=== PATIENT | female | born 1980 | race Caucasian/White ===

== ENCOUNTER 2022-06-21 08:33 | Inpatient (IN) | payer OTHER ==
[2022-06-21] MEDS ORDERED: NICOTINE 10 MG CARTRIDGE (INHALER) IH PRN (09:15)
[2022-06-21] MEDS ORDERED: IBUPROFEN 400 MG TABLET (FP) PO PRN (09:15)
[2022-06-21] MEDS ORDERED: LOPERAMIDE HCL 2 MG CAPSULE PO PRN (09:15)
[2022-06-21] MEDS ORDERED: NICOTINE POLACRILEX 2 MG GUM BUC PRN (09:15)
[2022-06-21] MEDS ORDERED: ONDANSETRON *ODT* 4 MG TABLET SL PRN (09:15)
[2022-06-21] MEDS ORDERED: NALOXONE HCL (KLOXXADO) 8 MG SPRAY NS PRN (09:15)
[2022-06-21] MEDS ORDERED: clonazePAM 0.5 MG ODT TABLETS SL PRN (09:15)
[2022-06-21] MEDS ORDERED: POLYETHYLENE GLYCOL (HEALTHYLAX) 3350 17 GM PACKET PO PRN (09:15)
[2022-06-21] MEDS ORDERED: ACETAMINOPHEN 325 MG TABLET (FP) PO PRN ×2 (09:15)
[2022-06-21] MEDS ORDERED: IBUPROFEN 600 MG TABLET (FP) PO PRN (09:15)
[2022-06-21] MEDS ORDERED: MAG HYDROX/AL HYDROX/SIMETH 30 ML UNIT-DOSE CUP PO PRN (09:15)
[2022-06-21] MEDS ORDERED: DICYCLOMINE HCL 10 MG CAPSULE PO PRN (09:15)
[2022-06-21] MEDS ORDERED: BENZOCAINE/MENTHOL (CHLORASEPTIC ) LOZENGE MM PRN (09:15)
[2022-06-21] MEDS ORDERED: BISMUTH SUBSALICYLATE 524 MG/30 ML PO PRN (09:15)
[2022-06-21] MEDS ORDERED: cloNIDine HCL 0.1 MG TABLET PO PRN (09:15)
[2022-06-21] MEDS ORDERED: MAGNESIUM HYDROX 2400MG/30ML ORAL SUSPENSION 30 ML CUP PO PRN (09:15)
[2022-06-21] MEDS ORDERED: ONDANSETRON *ODT* 4 MG TABLET ONE (09:35)
[2022-06-21] MEDS ORDERED: methaDONE HCL 10 MG TABLET (FOR DETOX USE ONLY) PO ONE (10:00)
[2022-06-21] MEDS ORDERED: methaDONE HCL 10 MG TABLET (FOR DETOX USE ONLY) ONE (10:12)
[2022-06-21] MEDS ORDERED: PRENATAL VITAMINS W/ FOLIC ACID TABLET (FP) PO ONE (10:12)
[2022-06-21] MEDS: PRENATAL VITAMINS W/ FOLIC ACID TABLET (FP) PO SCH (10:25)
[2022-06-21] MEDS: CLOTRIMAZOLE 1% CREAM TP SCH ×2 (12:05→22:04)
[2022-06-21] MEDS ORDERED: MELATONIN 5 MG TABLETS PO SCH (22:00)
[2022-06-21] MEDS: THIAMINE HCL 100 MG TABLET (FP) PO SCH (22:04)
[2022-06-21] MEDS: hydrOXYzine PAMOATE 25 MG CAPSULE (FP) PO PRN (22:06)
[2022-06-22] MEDS: hydrOXYzine PAMOATE 25 MG CAPSULE (FP) PO PRN (06:19)
[2022-06-22] MEDS: PRENATAL VITAMINS W/ FOLIC ACID TABLET (FP) PO SCH (10:46)
[2022-06-22] MEDS: CLOTRIMAZOLE 1% CREAM TP SCH ×2 (10:47→22:27)
[2022-06-22] MEDS: SERTRALINE HCL 50 MG TABLET (FP) PO SCH (12:18)
[2022-06-22] MEDS: NICOTINE POLACRILEX 4 MG GUM BUC PRN ×2 (12:23→22:29)
[2022-06-22 13:39] LABS: HEMATOCRIT 38.7 % (32.4-45.2); HEMOGLOBIN 13.5 GM/dL (10.7-15.3); MCH 30.1 pg (25.7-33.7); MCHC 34.8 g/dl (32.0-36.0); MEAN CELL VOLUME 86.5 fl (80-96); MEAN PLT VOLUME 9.5 fl (7.5-11.1); PLATELET COUNT 204 10^3/uL (134-434); RBC 4.47 M/mm3 (3.60-5.2); RDW 14.9 % (11.6-15.6); WHITE BLOOD COUNT 3.3 K/mm3 (4.0-10.0)
[2022-06-22 14:27] LABS: CALCIUM 9.6 mg/dL (8.5-10.1)
[2022-06-22 14:28] LABS: BLOOD UREA NITROGEN 13.2 mg/dL (7-18)
[2022-06-22 14:31] LABS: CREATININE 0.8 mg/dL (0.55-1.3)
[2022-06-22 14:33] LABS: BILIRUBIN,TOTAL 0.3 mg/dL (0.2-1); TOT PROT 7.9 g/dl (6.4-8.2)
[2022-06-22] MEDS: risperiDONE 2 MG TABLET PO SCH (22:26)
[2022-06-22] MEDS: THIAMINE HCL 100 MG TABLET (FP) PO SCH (22:26)
[2022-06-22] MEDS: SUVOREXANT 10 MG TABLET PO PRN (22:28)
[2022-06-23] MEDS: METHOCARBAMOL 500 MG TABLET PO PRN ×2 (09:29→22:13)
[2022-06-23] MEDS: SERTRALINE HCL 50 MG TABLET (FP) PO SCH (09:29)
[2022-06-23] MEDS: hydrOXYzine PAMOATE 25 MG CAPSULE (FP) PO PRN (09:29)
[2022-06-23] MEDS: PRENATAL VITAMINS W/ FOLIC ACID TABLET (FP) PO SCH (09:30)
[2022-06-23] MEDS: NICOTINE 21 MG/24 HOURS TOPICAL PATCH TD PRN (09:31)
[2022-06-23] MEDS: NICOTINE POLACRILEX 4 MG GUM BUC PRN ×3 (09:31→21:14)
[2022-06-23] MEDS: CLOTRIMAZOLE 1% CREAM TP SCH ×2 (09:33→22:45)
[2022-06-23] MEDS ORDERED: methaDONE HCL 10 MG TABLET (FOR DETOX USE ONLY) PO ONE (10:00)
[2022-06-23] MEDS: THIAMINE HCL 100 MG TABLET (FP) PO SCH (22:13)
[2022-06-23] MEDS: risperiDONE 2 MG TABLET PO SCH (22:13)
[2022-06-23] MEDS: SUVOREXANT 10 MG TABLET PO PRN (22:13)
[2022-06-24] MEDS: SERTRALINE HCL 50 MG TABLET (FP) PO SCH (09:33)
[2022-06-24] MEDS: PRENATAL VITAMINS W/ FOLIC ACID TABLET (FP) PO SCH (09:33)
[2022-06-24] MEDS: METHOCARBAMOL 500 MG TABLET PO PRN ×2 (09:33→22:05)
[2022-06-24] MEDS: CLOTRIMAZOLE 1% CREAM TP SCH ×2 (09:33→22:04)
[2022-06-24] MEDS: hydrOXYzine PAMOATE 25 MG CAPSULE (FP) PO PRN ×2 (09:33→22:04)
[2022-06-24] MEDS: NICOTINE 21 MG/24 HOURS TOPICAL PATCH TD PRN (09:35)
[2022-06-24] MEDS: NICOTINE POLACRILEX 4 MG GUM BUC PRN ×4 (09:35→22:07)
[2022-06-24] MEDS: SUVOREXANT 10 MG TABLET PO PRN (22:04)
[2022-06-24] MEDS: THIAMINE HCL 100 MG TABLET (FP) PO SCH (22:04)
[2022-06-24] MEDS: risperiDONE 2 MG TABLET PO SCH (22:05)
[2022-06-25] MEDS ORDERED: methaDONE HCL 10 MG TABLET (FOR DETOX USE ONLY) PO ONE (10:00)
[2022-06-25] MEDS: CLOTRIMAZOLE 1% CREAM TP SCH ×2 (10:01→22:16)
[2022-06-25] MEDS: PRENATAL VITAMINS W/ FOLIC ACID TABLET (FP) PO SCH (10:02)
[2022-06-25] MEDS: hydrOXYzine PAMOATE 25 MG CAPSULE (FP) PO PRN ×2 (10:02→22:16)
[2022-06-25] MEDS: SERTRALINE HCL 50 MG TABLET (FP) PO SCH (10:02)
[2022-06-25] MEDS: METHOCARBAMOL 500 MG TABLET PO PRN ×2 (10:02→21:24)
[2022-06-25] MEDS: NICOTINE POLACRILEX 4 MG GUM BUC PRN ×4 (10:03→21:08)
[2022-06-25] MEDS: NICOTINE 21 MG/24 HOURS TOPICAL PATCH TD PRN (11:13)
[2022-06-25] MEDS ORDERED: SUVOREXANT 10 MG TABLET PO PRN (22:00)
[2022-06-25] MEDS: risperiDONE 2 MG TABLET PO SCH (22:16)
[2022-06-25] MEDS: THIAMINE HCL 100 MG TABLET (FP) PO SCH (22:16)
[2022-06-26] MEDS: NICOTINE POLACRILEX 4 MG GUM BUC PRN (08:53)
[2022-06-26 09:54] VITALS: BP 109/71; PULSE 87; RESP 18; TEMP 97.9
[2022-06-26] MEDS: PRENATAL VITAMINS W/ FOLIC ACID TABLET (FP) PO SCH (10:41)
[2022-06-26] MEDS: CLOTRIMAZOLE 1% CREAM TP SCH (10:41)
[2022-06-26] MEDS: SERTRALINE HCL 50 MG TABLET (FP) PO SCH (10:41)
== END 2022-06-26 11:10 | disposition home or self-care (01) | DRG 773 ==
LOC: YASAS 08:33 → Y6N 10:04
PROVIDERS: ADMIT Allergy & Immunology; ATTEND Surgery
PROC: HZ2ZZZZ Detoxification Services for Substance Abuse Treatment (ICD-10-PCS; principal; 2022-06-21)
DX: F11.23 Opioid dependence with withdrawal (principal); F17.210 Nicotine dependence, cigarettes, uncomplicated; F31.9 Bipolar disorder, unspecified; F19.282 Other psychoactive substance dependence with psychoactive substance-induced sleep disorder; F19.24 Other psychoactive substance dependence with psychoactive substance-induced mood disorder; G25.81 Restless legs syndrome; L40.9 Psoriasis, unspecified; Z62.810 Personal history of physical and sexual abuse in childhood; Z91.410 Personal history of adult physical and sexual abuse; Z59.02 Unsheltered homelessness; Z56.0 Unemployment, unspecified
CPT/HCPCS: 36415; 80053; 81025; 85027; 86780; 87811; 93005; 93010; C9803-CS; Q0162; U0003; U0005